=== PATIENT | female | born 1950 | race Caucasian/White ===

== ENCOUNTER → 2020-10-15 | Outpatient (CLI) | payer MEDICARE, BC ==
--- NOTE | 2020-10-15 14:45 | RAD ---
INDICATION: Reason: LT CALF PAIN / Spl. Instructions: / History: COMPARISON: None. TECHNIQUE: Grayscale, color and doppler ultrasound images were obtained of the left lower extremity v enous vasculature. LEFT: No thrombus identified in the common femoral vein, femoral vein, popliteal vein or visualized calf ve ins. Calcific atherosclerosis. Edema of soft tissues. IMPRESSION: * No thrombus identified in deep venous system of the left lower extremity. Electronically signed by: Ole Benavidez MD (10/15/2020 2:43 PM) [id number]
== END ==
LOC: US 13:51
PROVIDERS: ATTEND Family Medicine
DX: M79.662 Pain in left lower leg (principal)
CPT/HCPCS: 93971